=== PATIENT | female | born 1940 | race Hispanic/Latino ===

== ENCOUNTER 2016-12-12 08:06 | Day surgery (SDC) | payer MEDICARE ==
[~2016-12-12 08:06] MED LIST: ANCEF/STERILE WATER 2 GM/20 ML 2 GM/20 ML SYRINGE IV NR; NACL 0.9% 1000 ML 1,000 ML IV SCH
[2016-12-12] MEDS ORDERED: NACL 0.9% 500 ML 500 ML IV SCH (09:00)
[2016-12-12 09:08] LABS: Basophils % (Auto) 0.9 % (0.0-1.8); Eosinophils % (Auto) 1.5 % (0.0-4.3); Hematocrit 34.6 % (30.3-42.9); Hemoglobin 11.5 gm/dl (10.1-14.3); Mean Corpuscular HGB Conc 33 % (30-34); Mean Corpuscular Hemoglobin 30 pg (28-32); Mean Corpuscular Volume 90 fl (79-97); Platelet Count 150 K/mm3 (140-440); Red Blood Count 3.83 M/mm3 (3.65-5.03); Red Cell Distribution Width 13.9 % (13.2-15.2); White Blood Count 4.2 K/mm3 (4.5-11.0)
[2016-12-12 09:19] LABS: INR 1.1 (0.87-1.13)
[2016-12-12 09:20] LABS: Anion Gap 13 mmol/L; BUN/Creatinine Ratio 24.44; Blood Urea Nitrogen 22 mg/dL (7-17); Calcium 8.9 mg/dL (8.4-10.2); Carbon Dioxide 31 mmol/L (22-30); Chloride 102.6 mmol/L (98-107); Glucose 116 mg/dL (65-100); Partial Thromboplastin Time 30.9 Sec. (24.2-36.6); Potassium 4.4 mmol/L (3.6-5.0); Sodium 142 mmol/L (137-145)
[2016-12-12] MEDS ORDERED: HEPARIN/NS 5000 UNIT/500ML(CATH LAB) 1,000 ML IR ONE (11:06)
[2016-12-12] MEDS ORDERED: HEPARIN 10,000 UNITS/10 ML ONE (11:06)
[2016-12-12] MEDS ORDERED: NACL 0.9% 500 ML 500 ML ONE ×2 (11:07→12:58)
[2016-12-12] MEDS ORDERED: ANCEF/STERILE WATER 2 GM/20 ML 2 GM/20 ML SYRINGE IV ONE (11:07)
[2016-12-12] MEDS ORDERED: XYLOCAINE 1%/ EPI 1:100,000 INFILTRATI ONE (11:07)
[2016-12-12] MEDS: SUBLIMAZE ONE ×8 (11:20→13:10)
[2016-12-12] MEDS: VERSED ONE ×8 (11:20→13:10)
[2016-12-12] MEDS: HEPARIN 10,000 UNITS/10 ML ONE ×3 (11:43→12:35)
[2016-12-12] MEDS ORDERED: HEPARIN/NS 5000 UNIT/500ML(CATH LAB) 500 ML IR ONE (12:45)
[2016-12-12] MEDS: BENADRYL ONE ×2 (12:45→12:55)
--- NOTE | 2016-12-12 14:59 | Short Stay Summary ---
Short Stay Documentation Date of service: 12/12/16 Narrative H&P: 76-year-old female with indwelling IVC filter who presents for removal. - History H&P: obtained from office - Allergies and Medications Current Medications: Allergies codeine Allergy (Mild, Verified 07/10/15 09:03) Itching SHAKINESS, JITTERNESS Home Medications Medication Instructions Recorded Confirmed Last Taken Type Red Yeast Rice 600 mg PO BID 01/25/13 12/12/16 12/11/16 History Acetaminophen 650 mg PO PRN PRN 07/10/15 12/12/16 12/11/16 History Advair 250-50 Diskus 1 puff IH PRN PRN 07/10/15 12/12/16 12/10/16 History Apixaban [Eliquis] 10 mg PO BID 07/10/15 12/12/16 12/12/16 06:00 History Chlorthalidone 25 mg PO DAILY 07/10/15 12/12/16 12/12/16 06:00 History Levothyroxine [Synthroid] 150 mcg PO QAM 07/10/15 12/12/16 12/12/16 06:00 History Meclizine [Antivert] 25 mg PO TID PRN 07/10/15 12/12/16 1 Year Ago History Multiple Vitamin TAB (Theragran) 1 tab PO QDAY 07/10/15 12/12/16 12/11/16 History Ramipril 5 mg PO QDAY 07/10/15 12/12/16 12/12/16 06:00 History clonazePAM 0.5 mg PO PRN PRN 07/10/15 12/12/16 1 Month Ago History Magnesium Amino Acid Chelate 100 mg PO HS 12/12/16 12/12/16 12/11/16 History [Magnesium] Potassium Chloride [Klor-Con 8] 8 meq PO QDAY 12/12/16 12/12/16 12/11/16 History Active Medications Cefazolin Sodium (Ancef/Sterile Water 2 Gm/20 Ml) 2 gm in 20 mls @ 80 mls/hr IV PREOP NR PRN Reason: Protocol Stop: 12/12/16 21:00 Last Admin: 12/12/16 11:18 Dose: 20 mls Sodium Chloride (Nacl 0.9% 500 Ml) 500 mls @ 50 mls/hr IV DIRECT LAURA Last Admin: 12/12/16 13:06 Dose: 0 mls - Physical exam General appearance: no acute distress Gastrointestinal: normal - Brief post op/procedure progress note Date of procedure: 12/12/16 Pre-op diagnosis: IVC filter Post-op diagnosis: same Procedure: Complex removal of IVC filter Anesthesia: local (w/ conscious sedation) Surgeon: VENITA ESTEBAN Estimated blood loss: minimal Condition: stable - Hospital course Hospital course: Tolerated procedure without issue. Pressure bandage to right neck. Keep on until tomorrow. Can be discharged in 3 hrs. - Disposition Condition at discharge: Stable Disposition: DC-01 TO HOME OR SELFCARE Short Stay Discharge Plan Activity: advance as tolerated Weight Bearing Status: Weight Bear as Tolerated Diet: regular Wound: keep clean and dry (do not get right neck wet for 5 days ; remove pressure dressing 12/13/16 AM ), remove dressing (tomorrow) Additional Instructions: Make follow up appointment with [phone] Start Eliquis tonight Do not get dressing wet x 5days Keep pressure dressing till tomorrow morning. Forms: Post Sedation D/C Instructions
--- NOTE | 2016-12-12 15:12 | Operative Report ---
Operative Report Operative Report: EXAM: 1. Ultrasound-guided access of the right internal jugular vein. 2. Selection of the left common iliac vein with venography of the IVC 3. Ultrasound-guided access of the right internal jugular vein 4. Complex fluoroscopic guided removal of the indwelling Cook Celect IVC filter DATE: 12/12/16 CORPORATE DEVELOPMENT MANAGER: VENITA ESTEBAN MD INDICATION: 76-year-old female with prior IVC filter placement, complicated by thrombosis who presents for removal. MEDICATIONS: Please see nursing report for full details. DEVICES: HomarDataCoupip IVC filter removal kit 2 CONTRAST: Please see medical lab director report for full details PROCEDURE: The risks, benefits, and alternatives were discussed with the patient and her family; written informed consent was obtained. The patient's neck was prepped and draped in a sterile fashion. Ultrasound was used to evaluate the right internal jugular vein which was patent. Under direct ultrasound guidance, the right internal jugular vein was accessed with a 21-gauge micropuncture needle. 0.018 inch wire was passed into the IVC. Needle was exchanged for transitional dilator. Wire was exchanged for 0.035 inch Amplatz wire. Transitional dilator was exchanged for 5 Latvian sheath. Pigtail catheter was advanced over the wire and used to select the left common iliac vein. Digital subtraction angiography was performed demonstrating mild narrowing of the left common iliac vein, and mild to moderate diffuse narrowing of the IVC. The IVC filter was intact, and although there is no left or right tilt, there was a posterior or anterior tilt with the filter hook embedded in the wall. Sheath was exchanged for a VULCUNip access retrieval sheath. The dilators in the sheath were advanced to the IVC. I attempted to snare the hook of the IVC filter in multiple projections but was unsuccessful. I decided to try to displace the filter hook with a wire. Ultrasound was used to evaluate the right internal jugular vein which was patent. Under direct ultrasound guidance, the right internal jugular vein was accessed with a 21-gauge micropuncture needle. 0.018 inch wire was passed into the IVC. Needle was exchanged for transitional dilator. Wire was exchanged for 0.035 inch Amplatz wire. Transitional dilator was exchanged for 5 Latvian sheath. Amplatz wire was used to displace the IVC filter as I attempted again to snare the hook with the [employer] to up retrieval set. This was unsuccessful. I ultimately exchanged the sheath for a 14 Latvian sheath. I then used an Omni flush catheter and a standard Glidewire to perform the hangman procedure and passed the Glidewire around the top of the IVC filter. The free end of the Glidewire was snared and through and through access was obtained. Homar Tulip retrieval sheath was then advanced over the free ends of the Glidewire and filter was engaged. Unfortunately, I was unable to pass the sheath over the IVC filter. I removed the Glidewire and again tried with a snare, and I was able to engage the hook with the snare which was now freed from the wall. As I advanced the Homar Tulip retrieval set over the wire, the snare broke. Everything was retrieved. I attempted to snare the hook again with a new Homar Tulip retrieval set, but was unsuccessful. I performed the hangman maneuver again with an Omni flush, standard Glidewire, and gooseneck snare. I advanced the Homar to up retrieval set over the IVC filter, but this time I was able to retrieve the IVC filter into the 14 Latvian sheath. I then removed the Homar tulip in the 14 Latvian sheath as a unit, but as the filter was being removed, the hook of the filter slightly ripped sheath and the hook became embedded in the soft tissues of the neck. The area was anesthetized and a 15 blade was used to make the incision at the internal jugular vein wider. The hook of the IVC filter was then retrieved with a hemostat and the IVC filter was removed. The IVC filter was examined and the Cook Celect IVC filter was intact. Pressure was held until hemostasis was achieved. 3-0 Vicryl sutures were used to close the areas near the cut down. Dermabond was then applied. Pigtail catheter was advanced over the Amplatz wire in the IVC. Digital subtraction angiography was performed demonstrating no extravasation or pseudoaneurysm. There was prompt flow through the IVC. All sheaths were removed. Pressure was held until hemostasis was achieved. Pressure bandage applied. FINDINGS: Please see procedure note above. IMPRESSION: 1. Successful complex IVC filter removal as described above.
[2016-12-12 16:21] VITALS: BP 103/64
--- NOTE | 2016-12-15 07:44 | Vascular Lab Report ---
MISCELLANEOUS VESSEL IDENTIFICATION: COMMENTS ON THE SCAN: The right internal jugular vein was identified and under real-time ultrasound guidance was cannulated. IMPRESSION: Successful ultrasound guided vein cannulation.
== END 2016-12-12 16:30 | disposition home or self-care (01) ==
LOC: CATHLABREC 08:06
PROVIDERS: ATTEND Radiology Diagnostic Radiology
DX: T82.868A Thrombosis due to vascular prosthetic devices, implants and grafts, initial encounter (principal); M19.90 Unspecified osteoarthritis, unspecified site; J45.909 Unspecified asthma, uncomplicated; I80.293 Phlebitis and thrombophlebitis of other deep vessels of lower extremity, bilateral; E11.9 Type 2 diabetes mellitus without complications; K21.9 Gastro-esophageal reflux disease without esophagitis; I10 Essential (primary) hypertension; E78.00 Pure hypercholesterolemia, unspecified; Z88.5 Allergy status to narcotic agent; Z90.710 Acquired absence of both cervix and uterus; Z98.890 Other specified postprocedural states; Z72.89 Other problems related to lifestyle; Y83.8 Other surgical procedures as the cause of abnormal reaction of the patient, or of later complication, without mention of misadventure at the time of the procedure
CPT/HCPCS: 36415; 37193; 76937; 80048; 85025; 85610; 85730; C1769; C1773; C1887; C2629; J0690; J1200; J1644; J2250; J3010; J7040; Q9967

== ENCOUNTER 2018-07-01 08:11 | Day surgery (SDC) | payer MEDICARE ==
[2018-07-01] MEDS ORDERED: NACL 0.9% 500 ML 500 ML IV SCH (09:00)
[2018-07-01 09:08] LABS: Eosinophils # (Auto) 0.1 K/mm3 (0.0-0.4); Eosinophils % (Auto) 1.8 % (0.0-4.3); Hematocrit 37.2 % (30.3-42.9); Hemoglobin 12.6 gm/dl (10.1-14.3); Lymphocytes # (Auto) 1.3 K/mm3 (1.2-5.4); Mean Corpuscular HGB Conc 34 % (30-34); Mean Corpuscular Volume 91 fl (79-97); Monocytes # (Auto) 0.5 K/mm3 (0.0-0.8); Platelet Count 194 K/mm3 (140-440); Red Blood Count 4.11 M/mm3 (3.65-5.03); Red Cell Distribution Width 13.9 % (13.2-15.2)
--- NOTE | 2018-07-01 09:16 | Short Stay Summary ---
Short Stay Documentation Date of service: 07/01/18 Narrative H&P: 78-year-old female with severe venous insufficiency, compressive venous issues, prior cavo-ileofemoral DVT and IVC filter, status post IVC filter removal, mechanical thrombectomy of the left lower extremity, and treatment of venous issues with laser ablation who presents with severe symptoms of the right lower extremity and known right iliac vein occlusion. - History Principal diagnosis: Venous compression, post thrombotic syndrome, venous insuffiency H&P: obtained from office Past Medical History: DVT, hypertension Past Surgical History: Other (laminectomy, venous procedures) - Allergies and Medications Current Medications: Allergies codeine Allergy (Mild, Verified 07/10/15 09:03) Itching SHAKINESS, JITTERNESS Home Medications Medication Instructions Recorded Confirmed Last Taken Type Red Yeast Rice 600 mg PO BID 01/25/13 12/12/16 12/11/16 History Acetaminophen 650 mg PO PRN PRN 07/10/15 12/12/16 12/11/16 History Advair 250-50 Diskus 1 puff IH PRN PRN 07/10/15 12/12/16 12/10/16 History Apixaban [Eliquis] 10 mg PO BID 07/10/15 12/12/16 12/12/16 06:00 History Chlorthalidone 25 mg PO DAILY 07/10/15 12/12/16 12/12/16 06:00 History Levothyroxine [Synthroid] 150 mcg PO QAM 07/10/15 12/12/16 12/12/16 06:00 History Meclizine [Antivert] 25 mg PO TID PRN 07/10/15 12/12/16 1 Year Ago History ~12/13/15 Multiple Vitamin TAB (Theragran) 1 tab PO QDAY 07/10/15 12/12/16 12/11/16 History Ramipril 5 mg PO QDAY 07/10/15 12/12/16 12/12/16 06:00 History clonazePAM 0.5 mg PO PRN PRN 07/10/15 12/12/16 1 Month Ago History ~11/11/16 Magnesium Amino Acid Chelate 100 mg PO HS 12/12/16 12/12/16 12/11/16 History [Magnesium] Potassium Chloride [Klor-Con 8] 8 meq PO QDAY 12/12/16 12/12/16 12/11/16 History Active Medications Sodium Chloride (Nacl 0.9% 500 Ml) 500 mls @ 50 mls/hr IV DIRECT LAURA - Physical exam General appearance: no acute distress Lungs: Normal air movement Gastrointestinal: normal Extremities: normal temperature, normal color, abnormal (edema lower extremities) - Brief post op/procedure progress note Date of procedure: 07/01/18 Pre-op diagnosis: Lower extremity post thrombotic syndrome, venous compression, venous insuff Post-op diagnosis: same Procedure: Angioplasty of the right lower extremity veins Anesthesia: local (w/ conscious sedation) Surgeon: VENITA ESTEBAN Estimated blood loss: minimal Condition: stable - Hospital course Hospital course: Ready for discharge. 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
[2018-07-01 09:24] LABS: Calcium 9.5 mg/dL (8.4-10.2); INR 1.13 (0.87-1.13)
[2018-07-01 09:25] LABS: Partial Thromboplastin Time 30.6 Sec. (24.2-36.6)
[2018-07-01] MEDS ORDERED: HEPARIN/NS 5000 UNIT/500ML(CATH LAB) 1,000 ML IR ONE (09:33)
[2018-07-01] MEDS ORDERED: HEPARIN 10,000 UNITS/10 ML ONE (09:33)
[2018-07-01] MEDS: VERSED ONE ×3 (09:45→10:19)
[2018-07-01] MEDS: SUBLIMAZE ONE ×3 (09:45→10:19)
[2018-07-01] MEDS: XYLOCAINE 2% INFILTRATI ONE ×3 (09:45→10:45)
[2018-07-01] MEDS ORDERED: SUBLIMAZE ONE (10:45)
[2018-07-01] MEDS ORDERED: VERSED ONE (10:45)
--- NOTE | 2018-07-01 11:18 | Operative Report ---
Operative Report Operative Report: EXAM: 1. Ultrasound-guided access of the right internal jugular vein. 2. Selection of the IVC, right common iliac vein, right external iliac vein, right common femoral vein, right superficial femoral vein, and popliteal vein. 3. Venography of the right lower extremity and IVC 4. Angioplasty of the right mid superficial femoral vein with a 9 mm x 40 mm angioplasty balloon 5. Angioplasty of the right common femoral vein, external iliac vein, and common iliac vein with a 12 mm x 60 mm angioplasty balloon DATE: 07/01/18 SOLE ROUNDER: VENITA ESTEBAN MD INDICATION: 78-year-old female with post-thrombotic pain, venous compression, and venous insufficiency with inflammation with known right iliac vein issues. MEDICATIONS: Please see nursing report for full details. DEVICES: 9 mm x 40 mm angioplasty balloon 9 mm x 60 mm angioplasty balloon (not long enough) 12 mm x 60 mm angioplasty balloon CONTRAST: Please see [employer] note for full details PROCEDURE: The risks, benefits, and alternatives were discussed with the patient; written informed consent was obtained. The groins in the right neck were prepped and draped in a sterile fashion. The right internal jugular vein was evaluated with ultrasound was patent. Under direct ultrasound guidance, the right internal jugular vein was accessed with a 21-gauge micropuncture needle. 0.018 inch wire was passed into the IVC. Needle was exchanged for transitional dilator. Wire was exchanged for a Glidewire advantage passed into the IVC. Transitional dilator was exchanged for 8 Maori sheath ([place] destination). I was then able to select the right common iliac vein, external iliac vein, common femoral vein, superficial femoral vein, and popliteal vein. She was advanced into the superficial femoral vein. 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 The midportion of the s uperficial femoral vein and upper portion of the superficial femoral vein were patent. Lowest portion of the common femoral vein was patent with large collaterals extending from this area. There are cross pelvic collaterals to the left common femoral vein. The right upper and mid common femoral vein, external iliac vein, and common iliac vein have multifocal 80% narrowing throughout. The IVC is patent. 9 mm x 60 mm angioplasty balloon was passed over the wire but unable to reach the lower superficial femoral vein. Therefore a 9 mm x 40 mm angioplasty balloon was used to perform angioplasty of the lower superficial femoral vein. Digital subtraction angiography demonstrated less than 20% residual narrowing of this portion of the vein with prompt flow through the vein and no longer through the collaterals. 12 mm x 60 mm angioplasty balloon was used to perform angioplasty of the common femoral vein, external iliac vein, and common iliac vein with multiple inflations. Digital subtraction angiography was performed demonstrating some recoil which was treated with additional angioplasty. There was some contrast passing into the internal iliac vein, but I was unsure if this was contrast extravasation and therefore multiple projections were obtained to confirm that this was contrast passing into collaterals from the internal iliac vein. I also selected the right internal iliac vein and injected in order to confirm that there was no extravasation. After angioplasty, there was 20-30% residual narrowing of the mid and upper portion of the common femoral vein, external iliac vein, and common iliac vein. I decided that the intervention was com[plete at this time, but I did consider stenting the patient. The patient now has a much better landing zone for stenting. 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 FINDINGS: Please see procedure note above. IMPRESSION: 1. Successful venous reconstruction of the right common iliac vein, external iliac vein, common femoral vein, and lower superficial femoral vein with angioplasty as described above.
[2018-07-01 11:31] VITALS: BP 125/63
== END 2018-07-01 13:00 | disposition home or self-care (01) ==
LOC: CATHLABREC 08:11
PROVIDERS: ATTEND Radiology Diagnostic Radiology
DX: I87.2 Venous insufficiency (chronic) (peripheral) (principal); I87.1 Compression of vein; D50.0 Iron deficiency anemia secondary to blood loss (chronic); I25.10 Atherosclerotic heart disease of native coronary artery without angina pectoris; E78.00 Pure hypercholesterolemia, unspecified; I10 Essential (primary) hypertension; J44.9 Chronic obstructive pulmonary disease, unspecified; E11.51 Type 2 diabetes mellitus with diabetic peripheral angiopathy without gangrene; G47.30 Sleep apnea, unspecified; E66.9 Obesity, unspecified; E05.90 Thyrotoxicosis, unspecified without thyrotoxic crisis or storm; K21.9 Gastro-esophageal reflux disease without esophagitis; M19.90 Unspecified osteoarthritis, unspecified site; Z90.710 Acquired absence of both cervix and uterus; Z98.890 Other specified postprocedural states; Z80.0 Family history of malignant neoplasm of digestive organs; Z88.5 Allergy status to narcotic agent; Z79.899 Other long term (current) drug therapy; Z86.718 Personal history of other venous thrombosis and embolism; Z98.42 Cataract extraction status, left eye; Z98.41 Cataract extraction status, right eye; Z98.51 Tubal ligation status; Z83.3 Family history of diabetes mellitus; Z82.49 Family history of ischemic heart disease and other diseases of the circulatory system; Z80.1 Family history of malignant neoplasm of trachea, bronchus and lung; Z68.42 Body mass index [BMI] 45.0-49.9, adult
CPT/HCPCS: 36415; 37248; 37249; 75820; 75825; 76937; 80048; 85025; 85610; 85730; C1725; C1769; C1887; J1644; J2250; J3010; Q9967